=== PATIENT | female | born 1945 | race Caucasian/White ===

== ENCOUNTER 2016-11-21 16:45 | Inpatient (IN) | payer OTHER ==
--- NOTE | 2016-11-21 17:00 | CPEKG ---
Heart Rate: 103 RR Interval: 583 QRSD Interval: 82 QT Interval: 356 QTC Interval: 466 QRS [place]: -7 T Wave [place]: 53 EKG Severity - ABNORMAL ECG - EKG Impression: ATRIAL FIBRILLATION, V-RATE 78-129 Electronically Signed By: Arvin Berman 21-Nov-2016 18:02:05
[2016-11-21 17:13] LABS: % IMMATURE GRANULYOCYTES 0.4 % (0.0-1.1); ABSOLUTE IMMATURE GRANULOCYTES 0.03 10^3/uL (0.00-0.10); ADD DIFF? NO; ADD MORPH? NO; ADD SCAN? NO; ATYPICAL LYMPHOCYTE FLAG 10 (0-99); FRAGMENT RBC FLAG 0 (0-99); HEMATOCRIT 44.3 % (38.0-47.0); HEMOGLOBIN 15.4 g/dL (12.6-16.3); LEFT SHIFT FLG 0 (0-99); LIPEMIA HEMOLYSIS FLAG 90 (0-99); MEAN CELL HEMOGLOBIN 32.7 pg (27.9-34.1); MEAN CELL HEMOGLOBIN CONCENTR. 34.8 g/dL (32.4-36.7); MEAN CELL VOLUME 94.1 fL (81.5-99.8); MEAN PLATELET VOLUME 13.2 fL (8.7-11.7); PLATELET CLUMPS FLAG 0 (0-99); PLATELET COUNT 164 10^3/uL (150-400); RED BLOOD CELL COUNT 4.71 10^6/uL (4.18-5.33); RED CELL DISTRIBUTION WIDTH 14.3 % (11.5-15.2)
[2016-11-21] MEDS ORDERED: NS 1,000 ML IV ONE ×2 (17:14→17:43)
[2016-11-21 17:28] LABS: INR 2.11 (0.83-1.16); PROTIME(PATIENT) 23.8 SEC (12.0-15.0)
[2016-11-21 17:32] LABS: ANION GAP 19 mEq/L (8-16); CALCIUM 11.2 mg/dL (8.5-10.4); CARBON DIOXIDE 18 mEq/l (22-31); CHLORIDE 102 mEq/L (97-110); CREATININE 2.2 mg/dL (0.6-1.0); GLOMERULAR FILTRATION RATE 22; GLUCOSE 106 mg/dL (70-100); POTASSIUM 4.3 mEq/L (3.5-5.2); SODIUM 139 mEq/L (134-144)
--- NOTE | 2016-11-21 17:34 | EDPHY ---
H & P Stated Complaint: near syncope, hypotension, a-fib Time Seen by Provider: 11/21/16 17:33 HPI/ROS: CHIEF COMPLAINT: Presyncope, hypotension HISTORY OF PRESENT ILLNESS: The patient presents to the ED with complaints of presyncope. The patient is reportedly traveling with her daughter from [place] to [place]. She has a history of coronary artery disease, CABG, atrial fibrillation and questionable renal insufficiency. The patient has had very little to eat or drink today. She reportedly was quite hot while working in the sun. She developed symptoms of presyncope this afternoon. She had no associated chest pain, shortness of breath, headache, focal numbness or weakness. The patient reports she has been compliant with her typical medications. REVIEW OF SYSTEMS: A comprehensive 10 point review of systems is otherwise negative aside from elements mentioned in the history of present illness. Source: Patient Exam Limitations: No limitations - Personal History Current Tetanus/Diphtheria Vaccine: Unsure Current Tetanus Diphtheria and Acellular Pertussis (TDAP): Unsure - Medical/Surgical History Hx Asthma: No Hx Chronic Respiratory Disease: No Hx Diabetes: Yes Hx Cardiac Disease: Yes Hx Renal Disease: No Hx Cirrhosis: No Hx Alcoholism: No Hx HIV/AIDS: No Hx Splenectomy or Spleen Trauma: No Other PMH: OR, CABG, cardiac stents, DM2, atrial fibrillation, possible breast CA - Social History Smoking Status: Former smoker - Physical Exam Exam: General Appearance: Alert, no distress Eyes: Pupils equal and round no pallor or injection ENT, Mouth: Mucous membranes moist Respiratory: There are no retractions, lungs are clear to auscultation Cardiovascular: Irregular rate Gastrointestinal: Abdomen is soft and nontender, no masses, bowel sounds normal Neurological: A&O, normal motor function, normal sensory exam, normal cranial nerves Skin: Skin tag and hyperkeratotic changes noted to left breast nipple, 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 Musculoskeletal: Neck is supple nontender Extremities: symmetrical, full range of motion Constitutional: Initial Vital Signs Temperature (C) 36.5 C 11/21/16 16:58 Heart Rate 103 H 11/21/16 16:58 Respiratory Rate 17 11/21/16 16:58 Blood Pressure 76/54 L 11/21/16 16:58 O2 Sat (%) 93 11/21/16 16:58 O2 Delivery Mode Nasal Cannula O2 (L/minute) 2 Allergies/Adverse Reactions: Insulins Allergy (Verified 11/21/16 16:56) Penicillins Allergy (Verified 11/21/16 16:56) Home Medications: Medication Instructions Recorded Atorvastatin Calcium [Lipitor 80 80 mg PO DAILY 11/21/16 mg] Calcitriol [Calcitriol (*)] 0.25 mcg PO Q2D 11/21/16 Carvedilol [Coreg (*)] 6.25 mg PO BIDMEAL 11/21/16 Cholecalciferol Vit D3 [Vitamin D3 1,000 units PO DAILY 11/21/16 (*)] Furosemide [Lasix 80 MG (*)] 80 mg PO DAILY@,11/21/16 Levothyroxine [Synthroid 100 mcg 100 mcg PO DAILY06 11/21/16 (*)] Lisinopril [Zestril 2.5 mg (*)] 2.5 mg PO DAILY 11/21/16 Potassium Cl [Klor-Con 20 meq (*)] 20 meq PO BID@,11/21/16 Warfarin Sodium 9 mg PO SUTUWETHSA@20 11/21/16 Warfarin Sodium [Jantoven] 6 mg PO MOFR@20 11/21/16 metFORMIN HCL [Metformin HCl] 1,000 mg PO DAILY 11/21/16 metFORMIN HCL [Metformin HCl] 500 mg PO HS 11/21/16 Medical Decision Making - Diagnostics EKG Interpretation: EKG: Complete interpretation has been separately recorded in the [facility] archive. Summary impression: Atrial fibrillation, rate 103 Imaging Results: Imaging Impressions Chest X-Ray 11/21/16 17:08 Impression: Moderate cardiac enlargement post CABG.. ED Course/Re-evaluation: The patient presents to the ED after presyncope secondary to reported dehydration. The patient does have a history of chronic atrial fibrillation. The patient was noted to have an elevated creatinine of 2.2. The patient has a very complicated past medical history in speaking with her. She apparently is traveling from [place] to [place] for evaluation of what she feels is an undiagnosed cancer. She seems to exhibit poor insight into her current situation. The patient reported she was last hospitalized at a hospital in [place]. I obtained prior records from a hospitalization in August of 2015. At that point time the patient was admitted with decompensated heart failure and renal insufficiency with a creatinine of 1.4. During that hospitalization she was diuresed and reportedly had improvement of her renal function. Additonally, today the patient has skin changes around her rectum which appear to be consistent with a fistula. She also has some hyperkeratosis the skin changes around her left nipple which she is concerned in cancerous. In the ED, the patient received IV fluid rehydration. The patient's repeat creatinine continues to be 1.9. At this point time I do feel the patient should be admitted to the hospital in the setting of her hypotension, dehydration and renal insufficiency. The patient is in chronic atrial fibrillation and is anticoagulated. Consultation is made with Dr. Felipe Omer from the hospitalist service. - Data Points Laboratory Results: Laboratory Results 11/21/16 16:50 11/21/16 16:50 11/21/16 11/21/16 11/21/16 20:30 16:50 16:50 WBC RBC Hgb POC Hgb 14.6 gm/dL gm/dL (12.6-16.3) Hct POC Hct 43 % % (38-47) MCV MCH MCHC RDW Plt Count MPV Neut % (Auto) Lymph % (Auto) Montgomery % (Auto) Eos % (Auto) Baso % (Auto) Nucleat RBC Rel Count Absolute Neuts (auto) Absolute Lymphs (auto) Absolute Monos (auto) Absolute Eos (auto) Absolute Basos (auto) Absolute Nucleated RBC Immature Gran % Immature Gran # PT 23.8 SEC H SEC (12.0-15.0) INR 2.11 H (0.83-1.16) POC Sodium 144 mEq/L mEq/L (134-144) Sodium 139 mEq/L mEq/L (134-144) POC Potassium 3.4 mEq/L mEq/L (3.3-5.0) Potassium 4.3 mEq/L mEq/L (3.5-5.2) POC Chloride 106 mEq/L mEq/L (97-110) Chloride 102 mEq/L mEq/L (97-110) Carbon Dioxide 18 mEq/l L mEq/l (22-31) Anion Gap 19 mEq/L H mEq/L (8-16) POC BUN 38 mg/dL H mg/dL (7-23) BUN 45 mg/dL H mg/dL (7-23) Creatinine 2.2 mg/dL H mg/dL (0.6-1.0) POC Creatinine 1.9 mg/dL H mg/dL (0.6-1.0) Estimated GFR 22 Glucose 106 mg/dL H mg/dL (70-100) POC Glucose 106 mg/dL H mg/dL (70-100) Calcium 11.2 mg/dL H mg/dL (8.5-10.4) Phosphorus 3.3 mg/dL mg/dL (2.5-4.5) Troponin I 0.022 ng/mL ng/mL (0-0.034) 11/21/16 16:50 WBC 8.46 10^3/uL 10^3/uL (3.80-9.50) RBC 4.71 10^6/uL 10^6/uL (4.18-5.33) Hgb 15.4 g/dL g/dL (12.6-16.3) POC Hgb Hct 44.3 % % (38.0-47.0) POC Hct MCV 94.1 fL fL (81.5-99.8) MCH 32.7 pg pg (27.9-34.1) MCHC 34.8 g/dL g/dL (32.4-36.7) RDW 14.3 % % (11.5-15.2) Plt Count 164 10^3/uL 10^3/uL (150-400) MPV 13.2 fL H fL (8.7-11.7) Neut % (Auto) 59.3 % % (39.3-74.2) Lymph % (Auto) 29.0 % % (15.0-45.0) Montgomery % (Auto) 8.9 % % (4.5-13.0) Eos % (Auto) 1.5 % % (0.6-7.6) Baso % (Auto) 0.9 % % (0.3-1.7) Nucleat RBC Rel Count 0.0 % % (0.0-0.2) Absolute Neuts (auto) 5.02 10^3/uL 10^3/uL (1.70-6.50) Absolute Lymphs (auto) 2.45 10^3/uL 10^3/uL (1.00-3.00) Absolute Monos (auto) 0.75 10^3/uL 10^3/uL (0.30-0.80) Absolute Eos (auto) 0.13 10^3/uL 10^3/uL (0.03-0.40) Absolute Basos (auto) 0.08 10^3/uL 10^3/uL (0.02-0.10) Absolute Nucleated RBC 0.00 10^3/uL 10^3/uL (0-0.01) Immature Gran % 0.4 % % (0.0-1.1) Immature Gran # 0.03 10^3/uL 10^3/uL (0.00-0.10) PT INR POC Sodium Sodium POC Potassium Potassium POC Chloride Chloride Carbon Dioxide Anion Gap POC BUN BUN Creatinine POC Creatinine Estimated GFR Glucose POC Glucose Calcium Phosphorus Troponin I Medications Given: Discontinued Medications Sodium Chloride (Ns) 1,000 mls @ 0 mls/hr IV ONCE ONE PRN Reason: Wide Open Stop: 11/21/16 17:15 Last Admin: 11/21/16 17:22 Dose: 1,000 mls Sodium Chloride (Ns) 1,000 mls @ 0 mls/hr IV ONCE ONE; Wide Open PRN Reason: Protocol Stop: 11/21/16 17:44 Last Admin: 11/21/16 18:03 Dose: 1,000 mls Point of Care Test Results: 11/21/16 20:30 POC Sodium 144 POC Potassium 3.4 POC Chloride 106 POC BUN 38 H POC Creatinine 1.9 H POC Glucose 106 H Departure - Departure Disposition: [facility] Inpatient Acute Clinical Impression: Atrial fibrillation, Acute renal failure, Dehydration Condition: Fair
[2016-11-21 17:44] LABS: TROPONIN I 0.022 ng/mL (0-0.034)
[2016-11-21 21:56] LABS: COLOR PALE YELLOW; LEUKOCYTE ESTERASE,URINE NEGATIVE (NEGATIVE); NITRITE,URINE NEGATIVE (NEGATIVE)
[2016-11-21 21:59] LABS: BACTERIA 1+ /hpf (NONE SEEN); MUCUS TRACE /lpf (NONE-1+)
[2016-11-21] MEDS ORDERED: ACETAMINOPHEN 325 MG TAB PO PRN (22:44)
[2016-11-21] MEDS ORDERED: ONDANSETRON 4 MG/2 ML VIAL IVP PRN (22:44)
--- NOTE | 2016-11-22 02:23 | GHP ---
[f rep st] HISTORY AND PHYSICAL DATE OF ADMISSION: 11/21/2016 CHIEF COMPLAINT: Presyncope, lightheadedness. HISTORY: The patient is a 71-year-old female traveling with her daughter from [place] to [place]. Initially, they said that they were on vacation, and subsequently they said they were here in [facility] area because the doctors in [place] are poor and they want further workup of her breast mass. Her daughter's truck has broken down and somehow, that has resulted in them sleeping in a storage un it. Today, they were having a picnic in a park, it was very hot and karlee, and they ran out of food and water. They had arranged for a ride but it was late, and so there was a prolonged period of ti me in this hot park without water. Patient became diaphoretic and felt like her blood pressure was falling, she was very lightheaded and so they came to the emergency room. She has a known ulcer in her rectal area with possible fistula formation. The daughter is also conv inced that the patient has breast cancer due to a mass on her nipple. This has never been biopsied, and 1 of the things they plan to do here in [place] is see an oncologist. There is no history of chronic kidney disease, and it appears her baseline creatinine is 0.6. PAST MEDICAL HISTORY: 1. Coronary artery disease, status post CABG and stents. 2. Atrial fibrillation. 3. Diabetes type 2, uncontrolled. Hemoglobin A1c 17 in the past. 4. Hypertension. 5. Congestive heart failure, combined systolic and diastolic, ejection fraction 40% with recurrent admissions with massive volume overload due to Lasix noncompliance. 6. COPD, oxygen dependent. 7. Morbid obesity. MEDICATIONS: Please see computer record for full detailed list. ALLERGIES: To insulin and penicillin. SOCIAL HISTORY: Distant history of smoking. No alcohol. She lives with her daughter in [place] . They traveled here together. They are currently sleeping in a storage unit locally. REVIEW OF SYSTEMS: Complete review of systems obtained. Review of systems is negative on constitut ional, HEENT, GI, pulmonary, cardiovascular, , hematology, skin, muscular, endocrine, psych other than positives as in HPI. FAMILY HISTORY: Reviewed, noncontributory to presenting complaint. PHYSICAL EXAMINATION: GENERAL: Well-developed, well-nourished female in no acute distress. VITAL SIGNS: Temperature is 36.5, pulse 103, blood pressure initially 76/54, saturating 93% on room air. Blood pressure has come up after IV fluids. EYES: Normal conjunctiva. Pupils reactive to light. ENT: Normal ears and nose. Hearing intact. Normal lips and teeth. Oropharynx moist. NECK: Tra portia midline. No thyromegaly. CHEST: Normal respiratory effort. Lungs clear to auscultation bila terally. CARDIOVASCULAR: Regular rate and rhythm. No murmur. No extremity edema. ABDOMEN: Soft , nontender. No hepatosplenomegaly. SKIN: Warm, dry, intact. No rash. She has a decubitus ulcer , present on admission with possible perirectal fistulas. MUSCULOSKELETAL: No cyanosis or clubbing . Strength 5/5, upper and lower extremities. NEUROLOGIC: Cranial nerves intact. Normal sensation to light touch. PSYCHIATRIC: Alert and oriented x3. Normal affect. Normal judgment. Normal mem ory. BREASTS: Examination shows an area of hyperkeratosis on her left nipple. LABORATORY: White count 8.46, hematocrit 44.3, platelets 164. Sodium 139, potassium 4.3, chloride 102, bicarb 18, BUN 45, creatinine 2.2, glucose 106. Calcium is 11.2. Troponins negative. INR is 2.11. Urinalysis is negative. Chest x-ray reviewed, my personal interpretation is cardiomegaly. No acute CHF. EKG viewed by me. My personal interpretation is atrial fibrillation with heart rate of 103, no ischemic ST-T wave ayo nges. MEDICAL RECORDS REVIEW: Medical records have been faxed over from [place], [place], to the emergenc y room and I have reviewed them in detail. She has recurrent admissions for congestive heart failur e exacerbation due to Lasix noncompliance. She also has a known history of diabetes noncompliance w ith hemoglobin A1c of 17, although typically diabetes is easily controlled in the hospital. She carver s have insulin listed as an allergy, though I believe they have successfully given insulin as an inp atient recently in [place]. ASSESSMENT AND PLAN: 1. Acute renal failure. According to records, her baseline creatinine 0.6. I suspect she is hypov olemic due to her prolonged time out in the heat and running out of water. We will hold her Lasix a nd ELISHA inhibitor. We will gently hydrate with IV fluids and recheck creatinine in the morning. 2. Hyperkalemia. I suspect this is due to dehydration. We will hold her calcitriol, hydrate with IV fluids and recheck in the morning. 3. Hypotension. This has improved with IV fluid, normal saline. I do not think she is septic. 4. Atrial fibrillation. Heart rate is well controlled on Coreg, which I will continue, provided bl ood pressure tolerates. We will continue warfarin. She is therapeutic. 5. Coronary artery disease, status post previous CABG and stents. There is nothing to suggest acut e ischemia at this time. 6. Congestive heart failure, chronic systolic, ejection fraction 40%. We will watch her very close ly with IV fluids as she does have a history of severe fluid retention and recurrent admissions for CHF exacerbation when she does not take her Lasix. 7. Sacral decubitus ulcer with possible fistula, present on admission. We will consult Wound Care. 8. Breast mass. My suspicion for malignancy is relatively low. This does just look like some hype rkeratotic skin, although could consider a surgical consultation for possible biopsy. 9. Diabetes type 2, uncontrolled. We will need to hold her metformin due to creatinine elevation. This insulin allergy, though, is listed as questionable. Further clarification can be obtained if insulin is necessary. 10. Chronic obstructive pulmonary disease, oxygen dependent. This appears stable. 11. Obesity. BMI is 30. CODE STATUS: Full. ADMISSION STATUS: Will admit to observation as depending on rapidity of creatinine improvement will determine length of stay. DVT PROPHYLAXIS: She is chronically anticoagulated on warfarin, which will be continued. /[id number]/MODL
[2016-11-22] MEDS: LEVOTHYROXINE 100 MCG TAB PO SCH (05:12)
[2016-11-22 06:07] LABS: ANION GAP 12 mEq/L (8-16); CALCIUM 10.3 mg/dL (8.5-10.4); CARBON DIOXIDE 20 mEq/l (22-31); CHLORIDE 104 mEq/L (97-110); CREATININE 1.4 mg/dL (0.6-1.0); GLOMERULAR FILTRATION RATE 37; GLUCOSE 84 mg/dL (70-100); MAGNESIUM 1.3 mg/dL (1.6-2.3); POTASSIUM 3.5 mEq/L (3.5-5.2); SODIUM 136 mEq/L (134-144)
[2016-11-22 06:08] LABS: INR 2.11 (0.83-1.16); PROTIME(PATIENT) 23.8 SEC (12.0-15.0)
[2016-11-22] MEDS ORDERED: NON-FORMULARY NEW DRUG (Atorvastatin Calcium [Lipitor 80 Mg] 80 MG) PO SCH (09:00)
[2016-11-22] MEDS: NS 1,000 ML IV SCH ×2 (09:28→21:26)
[2016-11-22] MEDS: CARVEDILOL 6.25 MG TAB PO SCH ×2 (09:49→17:26)
[2016-11-22] MEDS: ATORVASTATIN CALCIUM 40 MG TAB PO SCH (09:49)
[2016-11-22 10:17] LABS: HEMOGLOBIN A1C 6.9 % (4.0-6.0)
--- NOTE | 2016-11-22 14:55 | HOSPPROG ---
Hospitalist Progress Note Assessment/Plan: 71 yo F w cad, dm here w volume depletion, concern over L breast skin tag skin tag: non malignant no further workup MARGARITA: pre renal continue IVF CAD: continue carvedilol and statin. ELISHA on hold proph: anticoagulated AF: anticoagulated rate controlled dispo: likely home in AM if cr normalized DM: continue meds Subjective: tele: AF (interp by me). cxr: prior cabg but no chf (interp by me) Objective: Vital Signs Temp Pulse Resp BP Pulse Ox 36.4 C 83 13 84/48 L 95 11/22/16 12:10 11/22/16 12:10 11/22/16 12:10 11/22/16 12:10 11/22/16 12:10 Laboratory Results 11/22/16 05:00 11/21/16 11/22/16 11/23/16 05:59 05:59 05:59 Intake Total 2810 Output Total 1150 450 Balance 1660 -450 PT 23.8 SEC (12.0-15.0) H 11/22/16 05:00 INR 2.11 (0.83-1.16) H 11/22/16 05:00 - Physical Exam Constitutional: no apparent distress, appears nourished, not in pain Eyes: PERRL, anicteric sclera Ears, Nose, Mouth, Throat: moist mucous membranes, hearing normal Cardiovascular: regular rate and rhythym, no murmur, rub, or gallop Respiratory: no respiratory distress, no rales or rhonchi Gastrointestinal: normoactive bowel sounds, soft, non-tender abdomen Genitourinary: no bladder fullness, No haines in urethra Skin: other (L breast w skin tag. soft. no axillary LAD. no masses) Musculoskeletal: full muscle strength, no muscle tenderness Neurologic: AAOx3, sensation intact bilaterally Psychiatric: interacting appropriately, not anxious Lymph, Heme, Immunologic: no cervical LAD, no supraclavicular LAD ICD10 Worksheet Patient Problems: Problems Problem Status Onset Acute renal failure Acute Atrial fibrillation Acute Dehydration Acute
--- NOTE | 2016-11-22 16:10 | WOCRNPDOC ---
KATHIE Advanced Assessment Note - Skin Integrity Problem, Advanced Assess Right Buttock Dressing Type: Open to Air Wound Bed Constitution: Healed Site Measurement - Head-to-Toe Length X Width X Depth (cm): 5.5x3.1x0 Pressure Injury Present on Admit: Yes Skin Integrity Problem Comment: Healed previous pressure injury site of unknown stage. Surrounded by mild erythema which is blanching. Reviewed need to offload with patient and daughter. Erich LEZAMA in room for care. Patient with itchy plaques on various parts of her body. Patient and daughter seem confused about the plaques and the pressure injury thought they were the same etiology. Explained the differences. Asked them to direct their questions regarding treatment of the plaques and it's etiology to MD who was going to round shortly. Right Heel Pressure Injury Site Measurement - Head-to-Toe Length X Width X Depth (cm): 1x1x0 Pressure Injury Stage: Stage 1 Pressure Injury Present on Admit: Yes Skin Integrity Problem Comment: Wound care does not need to follow. Please reconsult prn. Reported to Jessica FERGUSON.
[2016-11-22] MEDS ORDERED: WARFARIN SODIUM 3 MG TAB PO SCH (20:00)
[2016-11-22] MEDS ORDERED: WARFARIN SODIUM 9 MG PO SCH (20:00)
[2016-11-23 05:01] LABS: INR 2.38 (0.83-1.16); PROTIME(PATIENT) 26.2 SEC (12.0-15.0)
[2016-11-23] MEDS: LEVOTHYROXINE 100 MCG TAB PO SCH (05:24)
[2016-11-23 08:00] VITALS: BP 93/58; RESP 20; TEMP 97.7; O2SAT 92
[2016-11-23] MEDS: CARVEDILOL 6.25 MG TAB PO SCH (09:09)
[2016-11-23] MEDS: ATORVASTATIN CALCIUM 40 MG TAB PO SCH (09:09)
[2016-11-23 09:49] LABS: ANION GAP 9 mEq/L (8-16); CALCIUM 10.2 mg/dL (8.5-10.4); CARBON DIOXIDE 20 mEq/l (22-31); CHLORIDE 108 mEq/L (97-110); CREATININE 0.8 mg/dL (0.6-1.0); GLOMERULAR FILTRATION RATE > 60; GLUCOSE 119 mg/dL (70-100); SODIUM 137 mEq/L (134-144)
--- NOTE | 2016-11-23 10:03 | HOSPPROG ---
Hospitalist Progress Note Assessment/Plan: 71 yo F w cad, dm here w volume depletion, concern over L breast skin tag skin tag: non malignant no further workup MARGARITA: pre renal continue IVF CAD: continue carvedilol and statin. ELISHA on hold proph: anticoagulated AF: anticoagulated rate controlled dispo: home today > 30 minutes on dc Subjective: kidney function has normalized Objective: Vital Signs Temp Pulse Resp BP Pulse Ox 36.5 C 85 20 93/58 L 92 11/23/16 07:58 11/23/16 07:58 11/23/16 07:58 11/23/16 07:58 11/23/16 07:58 Laboratory Results 11/23/16 09:20 11/22/16 11/23/16 11/24/16 05:59 05:59 05:59 Intake Total 3998 375 Output Total 2325 Balance 1673 375 PT 26.2 SEC (12.0-15.0) H 11/23/16 04:06 INR 2.38 (0.83-1.16) H 11/23/16 04:06 - Physical Exam Constitutional: no apparent distress, appears nourished Eyes: PERRL, anicteric sclera Ears, Nose, Mouth, Throat: moist mucous membranes, hearing normal Cardiovascular: regular rate and rhythym, systolic murmur Respiratory: no respiratory distress, no rales or rhonchi Gastrointestinal: normoactive bowel sounds, soft, non-tender abdomen Genitourinary: no bladder fullness, No haines in urethra Skin: warm, normal color Musculoskeletal: full muscle strength, no muscle tenderness Neurologic: AAOx3 ICD10 Worksheet Patient Problems: Problems Problem Status Onset Acute renal failure Acute Atrial fibrillation Acute Dehydration Acute
--- NOTE | 2016-11-23 12:33 | GDS ---
[f rep st] DISCHARGE SUMMARY DISCHARGE DIAGNOSES: 1. Acute kidney injury secondary to volume depletion. 2. Coronary artery disease status post CABG. 3. Diabetes. 4. Skin tag on her breast. 5. Atrial fibrillation. 6. Combined systolic and diastolic heart failure. HOSPITAL COURSE: Please see admission history and physical by Dr. Jeni Velasquez. The patient pres ented to [facility] with an unusual story of living in a storage unit the last few days after having left [facility]. They ran out of food and water. They also had some desire to have a breast lesion looke d at. On presentation, the patient was found to have an elevated creatinine of 2.2. This is consistent with prerenal. Given her history, she had her Lasix and ELISHA inhibitor held. She received IV fluids. Her creatinine normalized to 0.8. She was not in heart failure. Regarding this breast lesion, it is a skin tag with no malignant potential and biopsy is not indicat ed. The patient is discharged home today with no prescriptions and unchanged medication regimen. /[id number]/MODL
[2016-11-23 17:35] VITALS: PULSE 89
[2016-11-24] MEDS ORDERED: WARFARIN SODIUM 6 MG PO SCH (20:00)
[2016-11-24] MEDS ORDERED: WARFARIN SODIUM 3 MG TAB PO SCH (20:00)
== END 2016-11-23 11:45 | disposition home or self-care (01) | DRG 683 ==
LOC: INTOOBSV 21:03 → F2W 22:40 → OBSVTOIN 11-22 15:15
PROVIDERS: ADMIT Student in an Organized Health Care Education/Training Program; ATTEND Internal Medicine
DX: N17.9 Acute kidney failure, unspecified (principal); E86.9 Volume depletion, unspecified; I50.42 Chronic combined systolic (congestive) and diastolic (congestive) heart failure; I11.0 Hypertensive heart disease with heart failure; I25.10 Atherosclerotic heart disease of native coronary artery without angina pectoris; E11.65 Type 2 diabetes mellitus with hyperglycemia; L91.8 Other hypertrophic disorders of the skin; I48.2 Chronic atrial fibrillation; J44.9 Chronic obstructive pulmonary disease, unspecified; L89.159 Pressure ulcer of sacral region, unspecified stage; Z91.14 Patient's other noncompliance with medication regimen; Z99.81 Dependence on supplemental oxygen; Z68.30 Body mass index [BMI] 30.0-30.9, adult; Z79.01 Long term (current) use of anticoagulants; Z95.1 Presence of aortocoronary bypass graft; Z95.5 Presence of coronary angioplasty implant and graft
CPT/HCPCS: 82947-QW; 97161-GP; 97165-GO; G0378; G8978-GP-CI; G8979-GP-CI; G8980-GP-CI; G8987-GO-CI; G8988-GO-CI; G8989-GO-CI